=== PATIENT | female | born 1955 | race Two or more races ===

== ENCOUNTER 2017-04-15 19:35 | Emergency (ER) | payer OTHER ==
[~2017-04-15] VITALS: Ht 172.7 cm; Wt 79.4 kg
[2017-04-15] MEDS ORDERED: PHENYLEPHRINE HCL 0.5 % NASAL SPRAY 15ML ONE (19:45)
[2017-04-15] MEDS ORDERED: OXYMETAZOLINE HCL 0.05 % NASAL SPRAY 15ML ONE (19:55)
[2017-04-15] MEDS ORDERED: phytonadione 1 ML ONE (20:20)
[2017-04-15] MEDS ORDERED: COCAINE HCL 4% TOP SOL 4ML TOP ONE (20:22)
[2017-04-15 20:43] LABS: Basophils # (auto) 0.1 uL; Basophils % (auto) 0.5 % (0.0-2.0); Eosinophils # (auto) 0.3 uL; Eosinophils % (auto) 1.7 % (0.0-7.0); Hemoglobin 13.1 g/dL (12.2-16.2); Lymphocytes # (auto) 5.1 uL; Lymphocytes % (auto) 31.3 % (10.0-50.0); Mean Corpuscular Hgb Conc. 33.7 g/dL (32.0-36.0); Mean Corpuscular Volume 94.9 fL (80.0-100.0); Mean Platelet Volume 11.4 fL (6.9-10.8); Monocytes # (auto) 1.2 uL; Monocytes % (auto) 7.3 % (0.0-12.0); Neutrophils # (auto) 9.7 uL; Neutrophils % (auto) 59.2 % (37.0-80.0); Nucleated Red Blood Cells % 0.2 %; Platelet Count (auto) 196 10^3/uL (140-450); Red Cell Distribution Width 13.3 % (11.8-14.3); White Blood Cell 16.4 10^3/uL (4.4-10.8)
[2017-04-15] MEDS ORDERED: SODIUM CHLORIDE 0.9% 1,000 ML IV ONE (20:45)
[2017-04-15] MEDS ORDERED: LIDOCAINE 1% HCL (LOCAL ANESTH.) INJ 20ML MDV ONE (20:48)
[2017-04-15 20:57] LABS: INR 0.99 (0.9-1.15); Partial Thromboplastin Time 24.2 sec (22.64-33.71); Prothrombin Time 10.8 sec (9.37-12.3)
[2017-04-15] MEDS ORDERED: LIDOCAINE 1% HCL (LOCAL ANESTH.) INJ 20ML MDV IJ ONE (21:00)
[2017-04-15 21:13] LABS: Albumin 3.5 g/dL (3.4-5.0); BUN/Creatinine Ratio 14.8; Bilirubin, Total 0.6 mg/dL (0.2-1.0); Calcium 8.9 mg/dL (8.5-10.1); Potassium 3.5 mmol/L (3.5-5.1); Total Protein 6.6 g/dL (6.4-8.2)
[2017-04-15] MEDS ORDERED: PHYTONADIONE (VIT K)10 MG/ML 1ML VIAL SUBCUT ONE (21:15)
[2017-04-15] MEDS ORDERED: ONDANSETRON HCL 4 MG/2 ML VIAL IV ONE (23:15)
[2017-04-16] MEDS ORDERED: HYDROmorphone HCL 2 MG/ML VL IV ONE (00:15)
[2017-04-16] MEDS ORDERED: cefTRIAXone 1GM/50ML D5W 50 ML IV ONE (02:45)
[2017-04-16 03:30] VITALS: BP 135/76
== END 2017-04-16 04:25 | disposition home or self-care (01) ==
LOC: ER 19:41
DX: R04.0 Epistaxis (principal)
CPT/HCPCS: 30901; 36415; 70486; 76705; 80053; 83036; 83690; 85025; 85610; 85730; 86850; 86900; 86901; 96361; 96365; 96372; 96375; 99285; J0696; J2001; J2405; J3430; J7030; J7060

== ENCOUNTER 2017-11-29 03:07 | Emergency (ER) | payer OTHER ==
[~2017-11-29] VITALS: Ht 172.7 cm; Wt 77.1 kg
[2017-11-29] MEDS ORDERED: OXYMETAZOLINE HCL 0.05 % NASAL SPRAY 15ML ONE (03:15)
[2017-11-29] MEDS ORDERED: COCAINE HCL 4% TOP SOL 4ML TOP ONE (03:30)
[2017-11-29 03:38] LABS: Basophils # (auto) 0.1 uL; Basophils % (auto) 0.7 % (0.0-2.0); Eosinophils # (auto) 0.4 uL; Eosinophils % (auto) 3.5 % (0.0-7.0); Hematocrit 43.2 % (36.0-46.0); Hemoglobin 14.5 g/dL (12.2-16.2); Lymphocytes # (auto) 4.5 uL; Lymphocytes % (auto) 39.9 % (10.0-50.0); Mean Corpuscular Hemoglobin 31.8 pg (28.0-32.0); Mean Corpuscular Hgb Conc. 33.4 g/dL (32.0-36.0); Mean Corpuscular Volume 95.2 fL (80.0-100.0); Monocytes # (auto) 0.7 uL; Monocytes % (auto) 5.8 % (0.0-12.0); Neutrophils # (auto) 5.7 uL; Neutrophils % (auto) 50.1 % (37.0-80.0); Platelet Count (auto) 195 10^3/uL (140-450); Red Blood Cells 4.54 10^6/uL (4.0-5.20); Red Cell Distribution Width 13.6 % (11.8-14.3); White Blood Cell 11.3 10^3/uL (4.4-10.8)
[2017-11-29] MEDS ORDERED: HYDROcodone-ACET 7.5/325MG TAB PO ONE (03:45)
[2017-11-29 03:56] LABS: Albumin 3.5 g/dL (3.4-5.0); BUN/Creatinine Ratio 16.7; Calcium 8.7 mg/dL (8.5-10.1); Potassium 4.3 mmol/L (3.5-5.1)
[2017-11-29 03:58] LABS: Bilirubin, Total 0.6 mg/dL (0.2-1.0); Total Protein 7.1 g/dL (6.4-8.2)
[2017-11-29] MEDS ORDERED: SODIUM CHLORIDE 0.9% 1,000 ML IV ONE (04:00)
[2017-11-29] MEDS ORDERED: PHYTONADIONE (VIT K)10 MG/ML 1ML VIAL SUBCUT ONE (05:15)
[2017-11-29 05:30] VITALS: BP 170/94
== END 2017-11-29 05:46 | disposition home or self-care (01) ==
LOC: ER 03:09
DX: R04.0 Epistaxis (principal)
CPT/HCPCS: 30901; 36415; 80053; 85025; 99284; J3430; J7030

== ENCOUNTER 2017-12-03 07:00 | Emergency (ER) | payer OTHER ==
[~2017-12-03] VITALS: Ht 172.7 cm; Wt 79.8 kg
[2017-12-03 07:21] VITALS: BP 118/64
== END 2017-12-03 07:45 | disposition home or self-care (01) ==
LOC: ER 07:00
DX: R04.0 Epistaxis (principal); E78.5 Hyperlipidemia, unspecified

== ENCOUNTER 2018-05-23 12:27 | Inpatient (IN) | payer SELFPAY ==
[~2018-05-23] VITALS: Ht 172.7 cm; Wt 80.6 kg
[2018-05-23] MEDS ORDERED: SODIUM CHLORIDE 0.9% 1,000 ML IV ONE (13:17)
[2018-05-23] MEDS ORDERED: LEVOFLOXACIN 500MG 100 ML IV ONE (13:30)
[2018-05-23] MEDS ORDERED: methylPREDNISolone SOD SUCC 125 MG/2 ML VL IV ONE (13:30)
[2018-05-23 13:57] LABS: Hematocrit 40.3 % (36.0-46.0); Hemoglobin 13.3 g/dL (12.2-16.2); Mean Corpuscular Hemoglobin 30.4 pg (28.0-32.0); Mean Corpuscular Hgb Conc. 32.9 g/dL (32.0-36.0); Mean Corpuscular Volume 92.4 fL (80.0-100.0); Platelet Count (auto) 195 10^3/uL (140-450); Red Blood Cells 4.37 10^6/uL (4.0-5.20); Red Cell Distribution Width 14.5 % (11.8-14.3); White Blood Cell 15.9 10^3/uL (4.4-10.8)
[2018-05-23 14:18] LABS: Band Neutrophils % (manual) 0; Basophils % (manual) 0 (0.0-2.0); Blast Cells 0; Eosinophils % (manual) 0 (0-7); Metamyelocytes % 0; Myelocytes % 0; Promyelocytes % 0; Reactive Lymphocytes 0
[2018-05-23 14:32] LABS: Alkaline Phosphatase 266 U/L (45-117); Aspartate Aminotransferase 57 U/L (15-37); Bilirubin, Total 0.8 mg/dL (0.2-1.0); GFR African American 12 mL/min; GFR Non-African American 10 mL/min; Total Protein 6.8 g/dL (6.4-8.2)
[2018-05-23 14:42] LABS: Lactic Acid w/Reflex 3.1 mmol/L (0.4-2.0)
[2018-05-23] MEDS ORDERED: SODIUM CHLORIDE 0.9% 1,000 ML IV SCH ×2 (14:46→15:45)
[2018-05-23 14:59] LABS: Lymphocytes % (manual) 5 (10.0-50.0); Monocytes % (manual) 2 (0-12)
[2018-05-23] MEDS ORDERED: LACTULOSE 20Gm/30ML SOLN PO PRN (15:00)
[2018-05-23] MEDS ORDERED: PROMETHAZINE HCL 25 MG/ML 1ML IV PRN (15:00)
[2018-05-23] MEDS ORDERED: ALBUTEROL SULF 2.5 MG/0.5ML(0.5%) NEB SOLN NEB PRN (15:00)
[2018-05-23] MEDS ORDERED: VANCOMYCIN 1GM/250ML 250 ML IV ONE (15:00)
[2018-05-23] MEDS ORDERED: ACETAMINOPHEN 500 MG TAB PO PRN (15:00)
[2018-05-23] MEDS ORDERED: VANCOMYCIN PER PHARMACY 0 MG IV SCH (15:00)
[2018-05-23] MEDS ORDERED: TEMAZEPAM 15 MG CAP PO PRN (15:00)
[2018-05-23] MEDS ORDERED: PIPERACILLIN-TAZOB 3.375GM 100 ML IV ONE (15:00)
[2018-05-23] MEDS ORDERED: MORPHINE SULFATE 4 MG/ML SYR/VIAL IV PRN (15:00)
[2018-05-23] MEDS ORDERED: LORazepam 0.5 MG TAB PO PRN (15:00)
[2018-05-23] MEDS ORDERED: NITROGLYCERIN 0.4 MG SL TAB SL PRN (15:00)
[2018-05-23] MEDS ORDERED: KETOROLAC TROMETH 30 MG/ML 1ML VIAL IV PRN (15:00)
[2018-05-23] MEDS ORDERED: OSELTAMIVIR 75 MG CAP PO ONE (15:00)
[2018-05-23] MEDS ORDERED: PIPERACILLIN-TAZOB 2.25GM 50 ML IV SCH (15:17)
[2018-05-23] MEDS ORDERED: OSELTAMIVIR 30 MG CAP PO SCH (15:19)
[2018-05-23 15:31] LABS: Urine Bacteria NONE SEEN /hpf (None Seen); Urine Blood Negative /uL (Negative); Urine Hyaline Cast MOD /lpf (0 - 2); Urine Specific Gravity 1.009 (1.001-1.035); Urine WBC 77 /hpf (0 - 5); Urine WBC Clumps PRESENT /hpf (None Seen)
[2018-05-23 15:37] LABS: Chloride 100 mmol/L (98-107); Potassium 3.6 mmol/L (3.5-5.1); Sodium 132 mmol/L (136-145)
[2018-05-23 15:38] LABS: Anion Gap 17 (5-15); BUN/Creatinine Ratio 21.9; Carbon Dioxide 15 mmol/L (21-32); Glucose 104 mg/dL (74-106)
[2018-05-23 15:39] LABS: Alanine Aminotransferase 79 U/L (13-56); Calcium 8.4 mg/dL (8.5-10.1)
[2018-05-23 15:40] LABS: Albumin 1.9 g/dL (3.4-5.0)
[2018-05-23 15:42] LABS: Blood Urea Nitrogen 102 mg/dL (7-18)
[2018-05-23] MEDS ORDERED: CLINDAMYCIN 900MG IV 50 ML IV ONE (15:45)
[2018-05-23 17:20] VITALS: BP_SYST 118; BP_SYST 122; BP_DIAS 38; BP_DIAS 70
[2018-05-23 17:31] VITALS: BP 118/70
[2018-05-23] MEDS: SODIUM BICARBONATE 50ML VIAL 50 ML in SOD CHL 0.45% 1,000 ML IV SCH (17:47)
[2018-05-23] MEDS ORDERED: PIPERACILLIN-TAZOB 3.375GM 100 ML IV SCH (18:00)
[2018-05-23] MEDS: ALBUTEROL SULF 2.5 MG/0.5ML(0.5%) NEB SOLN NEB SCH (19:06)
[2018-05-23 19:14] LABS: Creatinine, Urine 54 mg/dL (30.0-125.0); Sodium Urine 43 mmol/L (40-220)
[2018-05-23] MEDS: traMADol HCL 50 MG TAB PO PRN (20:34)
[2018-05-23 22:00] VITALS: BP 104/60
[2018-05-23] MEDS ORDERED: OSELTAMIVIR 75 MG CAP PO SCH (22:00)
[2018-05-23] MEDS: CLINDAMYCIN 600MG IV 50 ML IV SCH (22:27)
[2018-05-23] MEDS: HEPARIN SODIUM (PORCINE) 5000 UNITS/ML 1ML VIAL SC SCH (22:31)
[2018-05-24 05:00] VITALS: BP 100/59
[2018-05-24 05:27] LABS: Albumin 1.8 g/dL (3.4-5.0); BUN/Creatinine Ratio 35.7; Calcium 8.7 mg/dL (8.5-10.1)
[2018-05-24 05:30] LABS: Bilirubin, Total 0.6 mg/dL (0.2-1.0); Total Protein 6.1 g/dL (6.4-8.2)
[2018-05-24] MEDS: ALBUTEROL SULF 2.5 MG/0.5ML(0.5%) NEB SOLN NEB SCH ×4 (06:09→19:12)
[2018-05-24] MEDS: CLINDAMYCIN 600MG IV 50 ML IV SCH ×3 (06:11→21:43)
[2018-05-24 08:00] VITALS: BP 113/61
[2018-05-24 09:00] VITALS: BP 113/61
[2018-05-24] MEDS: PANTOPRAZOLE 40 MG TAB PO SCH (09:41)
[2018-05-24] MEDS: HEPARIN SODIUM (PORCINE) 5000 UNITS/ML 1ML VIAL SC SCH ×2 (09:48→21:44)
[2018-05-24] MEDS: SODIUM BICARBONATE 50ML VIAL 50 ML in SOD CHL 0.45% 1,000 ML IV SCH ×2 (09:49→13:30)
[2018-05-24] MEDS ORDERED: AZITHROMYCIN 500MG/ 250ML 250 ML IV SCH (10:00)
[2018-05-24] MEDS ORDERED: ENOXAPARIN SOD 40 MG/0.4 ML SYRINGE SC SCH (10:00)
[2018-05-24 12:47] LABS: Protein, Urine 56.6 mg/dL (0.0-11.9)
[2018-05-24 13:00] VITALS: BP 106/65
[2018-05-24 13:00] LABS: Urine Bacteria FEW /hpf (None Seen); Urine Blood Negative /uL (Negative); Urine WBC 1 /hpf (0 - 5)
[2018-05-24 16:45] VITALS: BP 126/69
[2018-05-24] MEDS: traMADol HCL 50 MG TAB PO PRN (21:45)
[2018-05-24 22:00] VITALS: BP 137/72
[2018-05-25] MEDS: SODIUM BICARBONATE 50ML VIAL 50 ML in SOD CHL 0.45% 1,000 ML IV SCH (00:27)
[2018-05-25] MEDS: traMADol HCL 50 MG TAB PO PRN ×2 (03:51→22:16)
[2018-05-25 05:00] VITALS: BP 96/48
[2018-05-25] MEDS: CLINDAMYCIN 600MG IV 50 ML IV SCH (05:30)
[2018-05-25 05:51] LABS: Hematocrit 31.6 % (36.0-46.0); Hemoglobin 10.6 g/dL (12.2-16.2); Mean Corpuscular Hemoglobin 30.2 pg (28.0-32.0); Mean Corpuscular Hgb Conc. 33.6 g/dL (32.0-36.0); Platelet Count (auto) 193 10^3/uL (140-450); Red Blood Cells 3.51 10^6/uL (4.0-5.20); Red Cell Distribution Width 14.7 % (11.8-14.3); White Blood Cell 20.9 10^3/uL (4.4-10.8)
[2018-05-25 05:57] LABS: Calcium 9.4 mg/dL (8.5-10.1); Potassium 3.6 mmol/L (3.5-5.1)
[2018-05-25 06:02] LABS: Basophils % (manual) 0 (0.0-2.0); Blast Cells 0; Eosinophils % (manual) 0 (0-7); Metamyelocytes % 0; Myelocytes % 0; Promyelocytes % 0; Reactive Lymphocytes 0
[2018-05-25 06:03] LABS: BUN/Creatinine Ratio 32.3; Phosphorus 3.8 mg/dL (2.5-4.90); Uric Acid 11.8 mg/dL (2.6-6.0)
[2018-05-25] MEDS: ALBUTEROL SULF 2.5 MG/0.5ML(0.5%) NEB SOLN NEB SCH ×3 (06:15→18:00)
[2018-05-25 06:33] LABS: Band Neutrophils % (manual) 2; Lymphocytes % (manual) 9 (10.0-50.0); Monocytes % (manual) 1 (0-12)
[2018-05-25 08:49] VITALS: BP 103/56
[2018-05-25] MEDS ORDERED: cefTRIAXone 1GM/50ML D5W 50 ML IV ONE (09:45)
[2018-05-25] MEDS: AZITHROMYCIN 500MG/ 250ML 250 ML IV SCH (10:00)
[2018-05-25] MEDS: PANTOPRAZOLE 40 MG TAB PO SCH (10:00)
[2018-05-25] MEDS ORDERED: LEVOFLOXACIN 250MG 50 ML IV SCH (10:00)
[2018-05-25] MEDS ORDERED: DEXTROSE (50%) 50ML SYRG IV PRN (10:30)
[2018-05-25] MEDS: HEPARIN SODIUM (PORCINE) 5000 UNITS/ML 1ML VIAL SC SCH ×2 (11:14→22:16)
[2018-05-25] MEDS: ACCU-CHEK COMFORT CURVE STRIP VI SCH ×3 (11:30→23:31)
[2018-05-25] MEDS: InsuLIN REG 1unit/0.01ml Soln (100units/ml) SC SCH ×3 (11:30→22:00)
[2018-05-25 13:00] VITALS: BP 105/57
[2018-05-25] MEDS: SOD CHL 0.9%/ KCL 20MEQ 1,000 ML IV SCH (16:00)
[2018-05-25 16:37] VITALS: BP 125/50
[2018-05-25 22:00] VITALS: BP 113/52
[2018-05-26 04:53] VITALS: BP 110/50
[2018-05-26 05:24] LABS: Basophils # (auto) 0 uL; Basophils % (auto) 0.1 % (0.0-2.0); Eosinophils # (auto) 0.1 uL; Eosinophils % (auto) 0.5 % (0.0-7.0); Hematocrit 35.2 % (36.0-46.0); Hemoglobin 11.6 g/dL (12.2-16.2); Lymphocytes # (auto) 2.6 uL; Mean Corpuscular Hemoglobin 29.9 pg (28.0-32.0); Mean Corpuscular Hgb Conc. 33.1 g/dL (32.0-36.0); Mean Corpuscular Volume 90.3 fL (80.0-100.0); Monocytes # (auto) 0.7 uL; Monocytes % (auto) 4.2 % (0.0-12.0); Neutrophils % (auto) 79.2 % (37.0-80.0); Platelet Count (auto) 207 10^3/uL (140-450); Red Blood Cells 3.89 10^6/uL (4.0-5.20); Red Cell Distribution Width 14.3 % (11.8-14.3); White Blood Cell 16.4 10^3/uL (4.4-10.8)
[2018-05-26 05:42] LABS: Albumin 1.8 g/dL (3.4-5.0); Calcium 8.9 mg/dL (8.5-10.1)
[2018-05-26 05:47] LABS: BUN/Creatinine Ratio 53.9; Bilirubin, Total 0.9 mg/dL (0.2-1.0); Total Protein 5.5 g/dL (6.4-8.2)
[2018-05-26] MEDS: SOD CHL 0.9%/ KCL 20MEQ 1,000 ML IV SCH ×2 (05:59→20:04)
[2018-05-26] MEDS: InsuLIN REG 1unit/0.01ml Soln (100units/ml) SC SCH ×4 (06:52→21:23)
[2018-05-26] MEDS: ACCU-CHEK COMFORT CURVE STRIP VI SCH ×4 (06:54→21:23)
[2018-05-26] MEDS: ALBUTEROL SULF 2.5 MG/0.5ML(0.5%) NEB SOLN NEB SCH ×5 (07:18→23:55)
[2018-05-26 08:30] VITALS: BP 100/47
[2018-05-26] MEDS: cefTRIAXone 1GM/50ML D5W 50 ML IV SCH (09:20)
[2018-05-26] MEDS: HEPARIN SODIUM (PORCINE) 5000 UNITS/ML 1ML VIAL SC SCH ×2 (10:03→21:17)
[2018-05-26] MEDS: AZITHROMYCIN 500MG/ 250ML 250 ML IV SCH (10:08)
[2018-05-26] MEDS: PANTOPRAZOLE 40 MG TAB PO SCH (10:08)
[2018-05-26 13:00] VITALS: BP 111/64
[2018-05-26 16:45] VITALS: BP 117/69
[2018-05-26 18:26] VITALS: BP 117/69
[2018-05-26 22:00] VITALS: BP 117/64
[2018-05-27 05:00] VITALS: BP 124/67
[2018-05-27] MEDS: ALBUTEROL SULF 2.5 MG/0.5ML(0.5%) NEB SOLN NEB SCH ×3 (06:05→18:12)
[2018-05-27] MEDS: ACCU-CHEK COMFORT CURVE STRIP VI SCH ×4 (06:17→21:52)
[2018-05-27] MEDS: InsuLIN REG 1unit/0.01ml Soln (100units/ml) SC SCH ×4 (06:19→21:52)
[2018-05-27] MEDS: SOD CHL 0.9%/ KCL 20MEQ 1,000 ML IV SCH (08:00)
[2018-05-27 08:59] VITALS: BP 128/65
[2018-05-27] MEDS: traMADol HCL 50 MG TAB PO PRN ×2 (10:04→19:36)
[2018-05-27] MEDS: cefTRIAXone 1GM/50ML D5W 50 ML IV SCH (10:09)
[2018-05-27] MEDS: PANTOPRAZOLE 40 MG TAB PO SCH (10:09)
[2018-05-27] MEDS: HEPARIN SODIUM (PORCINE) 5000 UNITS/ML 1ML VIAL SC SCH ×2 (10:10→22:01)
[2018-05-27] MEDS: ONDANSETRON HCL 4 MG/2 ML VIAL IV PRN (11:36)
[2018-05-27] MEDS: AZITHROMYCIN 500MG/ 250ML 250 ML IV SCH (11:37)
[2018-05-27 12:35] VITALS: BP 121/66
[2018-05-27 17:00] VITALS: BP 111/56
[2018-05-27 22:00] VITALS: BP 108/61
[2018-05-28] MEDS: ALBUTEROL SULF 2.5 MG/0.5ML(0.5%) NEB SOLN NEB SCH ×4 (00:53→19:21)
[2018-05-28] MEDS: SOD CHL 0.9%/ KCL 20MEQ 1,000 ML IV SCH ×2 (03:55→10:40)
[2018-05-28 05:25] VITALS: BP 118/61
[2018-05-28 06:06] LABS: Hematocrit 30.1 % (36.0-46.0); Hemoglobin 9.9 g/dL (12.2-16.2); Mean Corpuscular Volume 91.1 fL (80.0-100.0); Platelet Count (auto) 173 10^3/uL (140-450); Red Blood Cells 3.31 10^6/uL (4.0-5.20); Red Cell Distribution Width 14.4 % (11.8-14.3); White Blood Cell 14.3 10^3/uL (4.4-10.8)
[2018-05-28 06:20] LABS: Basophils % (manual) 0 (0.0-2.0); Blast Cells 0; Monocytes % (manual) 0 (0-12); Promyelocytes % 0; Reactive Lymphocytes 0
[2018-05-28] MEDS: InsuLIN REG 1unit/0.01ml Soln (100units/ml) SC SCH ×4 (06:32→22:00)
[2018-05-28] MEDS: ACCU-CHEK COMFORT CURVE STRIP VI SCH ×4 (06:34→22:00)
[2018-05-28 06:58] LABS: Albumin 1.6 g/dL (3.4-5.0); Calcium 8.3 mg/dL (8.5-10.1)
[2018-05-28 07:02] LABS: BUN/Creatinine Ratio 23.1; Bilirubin, Total 0.4 mg/dL (0.2-1.0); Total Protein 5.1 g/dL (6.4-8.2)
[2018-05-28 07:09] LABS: Band Neutrophils % (manual) 1; Eosinophils % (manual) 2 (0-7); Lymphocytes % (manual) 12 (10.0-50.0); Metamyelocytes % 1; Myelocytes % 3
[2018-05-28 09:00] VITALS: BP 176/65
[2018-05-28] MEDS: cefTRIAXone 1GM/50ML D5W 50 ML IV SCH (09:29)
[2018-05-28] MEDS: ONDANSETRON HCL 4 MG/2 ML VIAL IV PRN (09:38)
[2018-05-28] MEDS ORDERED: AZITHROMYCIN 250 MG TAB PO SCH (10:00)
[2018-05-28] MEDS ORDERED: METOPROLOL TARTRATE 50 MG TAB PO ONE (10:15)
[2018-05-28] MEDS: PANTOPRAZOLE 40 MG TAB PO SCH (10:53)
[2018-05-28] MEDS: diphenhdrAMINE HCL 25 MG CAP PO PRN ×2 (10:53→18:15)
[2018-05-28] MEDS: HEPARIN SODIUM (PORCINE) 5000 UNITS/ML 1ML VIAL SC SCH ×2 (10:54→21:48)
[2018-05-28 13:00] VITALS: BP 116/65
[2018-05-28] MEDS: traMADol HCL 50 MG TAB PO PRN ×2 (14:03→22:01)
[2018-05-28 17:00] VITALS: BP 78/38
[2018-05-28 17:01] VITALS: BP 95/48
[2018-05-28 21:30] VITALS: BP 112/58
[2018-05-28] MEDS ORDERED: METOPROLOL TARTRATE 50 MG TAB PO SCH (22:00)
[2018-05-29 05:00] VITALS: BP 102/61
[2018-05-29] MEDS: InsuLIN REG 1unit/0.01ml Soln (100units/ml) SC SCH ×4 (06:11→21:34)
[2018-05-29] MEDS: ACCU-CHEK COMFORT CURVE STRIP VI SCH ×4 (06:11→21:34)
[2018-05-29] MEDS: SOD CHL 0.9%/ KCL 20MEQ 1,000 ML IV SCH ×2 (06:12)
[2018-05-29 06:13] LABS: Hematocrit 30.2 % (36.0-46.0); Hemoglobin 10.2 g/dL (12.2-16.2); Mean Corpuscular Hemoglobin 31.5 pg (28.0-32.0); Mean Corpuscular Hgb Conc. 33.9 g/dL (32.0-36.0); Mean Corpuscular Volume 92.9 fL (80.0-100.0); Platelet Count (auto) 205 10^3/uL (140-450); Red Blood Cells 3.25 10^6/uL (4.0-5.20); Red Cell Distribution Width 14.3 % (11.8-14.3); White Blood Cell 10.6 10^3/uL (4.4-10.8)
[2018-05-29] MEDS: ALBUTEROL SULF 2.5 MG/0.5ML(0.5%) NEB SOLN NEB SCH ×4 (06:23→19:11)
[2018-05-29] MEDS: diphenhdrAMINE HCL 25 MG CAP PO PRN ×3 (06:24→23:00)
[2018-05-29 06:33] LABS: Potassium 4.4 mmol/L (3.5-5.1)
[2018-05-29 06:42] LABS: Basophils % (manual) 0 (0.0-2.0); Blast Cells 0; Metamyelocytes % 0; Myelocytes % 0; Promyelocytes % 0; Reactive Lymphocytes 0
[2018-05-29 06:45] LABS: Albumin 1.7 g/dL (3.4-5.0); BUN/Creatinine Ratio 18.4; Bilirubin, Total 0.4 mg/dL (0.2-1.0); Calcium 8.5 mg/dL (8.5-10.1); Total Protein 5.3 g/dL (6.4-8.2)
[2018-05-29] MEDS: traMADol HCL 50 MG TAB PO PRN ×2 (08:00→22:59)
[2018-05-29 08:12] LABS: Band Neutrophils % (manual) 2; Eosinophils % (manual) 1 (0-7); Lymphocytes % (manual) 13 (10.0-50.0); Monocytes % (manual) 4 (0-12)
[2018-05-29 08:16] VITALS: BP 119/71
[2018-05-29] MEDS: cefTRIAXone 1GM/50ML D5W 50 ML IV SCH (09:25)
[2018-05-29] MEDS: PANTOPRAZOLE 40 MG TAB PO SCH (10:58)
[2018-05-29] MEDS ORDERED: LEVOFLOXACIN 250 MG TAB PO ONE (11:00)
[2018-05-29 11:57] VITALS: BP 117/65
[2018-05-29 17:20] VITALS: BP 118/66
[2018-05-29 20:16] VITALS: BP 118/66
[2018-05-29 22:00] VITALS: BP 104/51
[2018-05-30] MEDS: ALBUTEROL SULF 2.5 MG/0.5ML(0.5%) NEB SOLN NEB SCH ×4 (00:11→18:38)
[2018-05-30 05:00] VITALS: BP 114/67
[2018-05-30 06:24] LABS: Hemoglobin 10.4 g/dL (12.2-16.2); Mean Corpuscular Hemoglobin 31.8 pg (28.0-32.0); Mean Corpuscular Hgb Conc. 34.7 g/dL (32.0-36.0); Mean Corpuscular Volume 91.8 fL (80.0-100.0); Platelet Count (auto) 207 10^3/uL (140-450); Red Blood Cells 3.27 10^6/uL (4.0-5.20); Red Cell Distribution Width 14.2 % (11.8-14.3); White Blood Cell 6.8 10^3/uL (4.4-10.8)
[2018-05-30 06:27] LABS: Basophils % (manual) 0 (0.0-2.0); Blast Cells 0; Myelocytes % 0; Promyelocytes % 0; Reactive Lymphocytes 0
[2018-05-30 06:46] LABS: Albumin 1.8 g/dL (3.4-5.0); Calcium 8.5 mg/dL (8.5-10.1)
[2018-05-30 06:50] LABS: BUN/Creatinine Ratio 9.1; Bilirubin, Total 0.5 mg/dL (0.2-1.0); Total Protein 5.6 g/dL (6.4-8.2)
[2018-05-30] MEDS: InsuLIN REG 1unit/0.01ml Soln (100units/ml) SC SCH ×4 (07:00→21:19)
[2018-05-30] MEDS: ACCU-CHEK COMFORT CURVE STRIP VI SCH ×4 (07:03→21:18)
[2018-05-30] MEDS: diphenhdrAMINE HCL 25 MG CAP PO PRN ×2 (07:44→20:24)
[2018-05-30 08:00] VITALS: BP 107/57
[2018-05-30 08:22] VITALS: BP 107/51
[2018-05-30 08:25] LABS: Band Neutrophils % (manual) 3; Eosinophils % (manual) 2 (0-7); Lymphocytes % (manual) 32 (10.0-50.0); Metamyelocytes % 2; Monocytes % (manual) 7 (0-12)
[2018-05-30] MEDS: PANTOPRAZOLE 40 MG TAB PO SCH (10:24)
[2018-05-30] MEDS: LEVOFLOXACIN 250 MG TAB PO SCH (10:25)
[2018-05-30 12:50] VITALS: BP 121/61
[2018-05-30] MEDS ORDERED: FLUCONAZOLE 100 MG TAB PO ONE (16:15)
[2018-05-30 17:03] VITALS: BP 111/63
[2018-05-30] MEDS: metFORMIN HYDROCHLORIDE 500 MG TAB PO SCH (17:31)
[2018-05-30] MEDS: traMADol HCL 50 MG TAB PO PRN (20:25)
[2018-05-30 21:41] VITALS: BP 115/63
[2018-05-31] MEDS: ALBUTEROL SULF 2.5 MG/0.5ML(0.5%) NEB SOLN NEB SCH ×3 (00:39→11:42)
[2018-05-31 04:55] VITALS: BP 115/54
[2018-05-31] MEDS: InsuLIN REG 1unit/0.01ml Soln (100units/ml) SC SCH ×2 (06:19→11:30)
[2018-05-31] MEDS: ACCU-CHEK COMFORT CURVE STRIP VI SCH ×2 (06:20→11:44)
[2018-05-31] MEDS: metFORMIN HYDROCHLORIDE 500 MG TAB PO SCH (07:33)
[2018-05-31 08:00] VITALS: BP 103/54
[2018-05-31] MEDS ORDERED: FLUCONAZOLE 100 MG TAB PO SCH (10:00)
[2018-05-31] MEDS: LEVOFLOXACIN 250 MG TAB PO SCH (10:04)
[2018-05-31] MEDS: diphenhdrAMINE HCL 25 MG CAP PO PRN ×2 (10:04→11:42)
[2018-05-31] MEDS: PANTOPRAZOLE 40 MG TAB PO SCH (10:05)
[2018-05-31] MEDS ORDERED: LEVO250T19 PO (10:43)
[2018-05-31] MEDS ORDERED: PANT40T PO (10:43)
[2018-05-31] MEDS ORDERED: METF500T PO (10:43)
[2018-05-31] MEDS ORDERED: ALBUAER3 IN (10:43)
[2018-05-31] MEDS ORDERED: FLUC100T34 PO (10:43)
[2018-05-31 11:33] VITALS: BP 103/54
== END 2018-05-31 14:33 | disposition home or self-care (01) | DRG 871 ==
LOC: EDBD 12:27 → ER 12:27 → EDUNIT# 12:27 → TELE 14:43 → TELE-EAST 17:21 → EAST 05-25 10:17
PROVIDERS: ADMIT Internal Medicine; ATTEND Internal Medicine
DX: A41.9 Sepsis, unspecified organism (principal); E43 Unspecified severe protein-calorie malnutrition; J13 Pneumonia due to Streptococcus pneumoniae; J96.01 Acute respiratory failure with hypoxia; N17.0 Acute kidney failure with tubular necrosis; E11.21 Type 2 diabetes mellitus with diabetic nephropathy; E78.5 Hyperlipidemia, unspecified; G62.9 Polyneuropathy, unspecified; I12.9 Hypertensive chronic kidney disease with stage 1 through stage 4 chronic kidney disease, or unspecified chronic kidney disease; N18.2 Chronic kidney disease, stage 2 (mild); Z87.891 Personal history of nicotine dependence; Z90.49 Acquired absence of other specified parts of digestive tract; Z83.3 Family history of diabetes mellitus; Z82.5 Family history of asthma and other chronic lower respiratory diseases; Z79.899 Other long term (current) drug therapy; Z68.27 Body mass index [BMI] 27.0-27.9, adult
CPT/HCPCS: 36415; 36600; 71045; 71046; 71250; 76775; 78582; 80048; 80053; 80061; 81001; 82550; 82570; 82805; 82962; 83036; 83520; 83605; 83615; 83735; 83880; 84100; 84156; 84300; 84484; 84550; 85007; 85025; 85027; 85379; 86256; 87040; 87070; 87077; 87086; 87186; 87205; 87804; 93005; 93306; 93970; 94640; 96361; 96365; 96367; 96375; 99291; G0378; G9035; J0696; J1815; J1956; J2405; J3490

== ENCOUNTER 2018-06-11 12:54 | Emergency (ER) | payer OTHER ==
[~2018-06-11] VITALS: Ht 172.7 cm; Wt 77.1 kg
[~2018-06-11 12:54] MED LIST: ALBUAER3 IN; FLUC100T34 PO; LEVO250T19 PO; METF500T PO; PANT40T PO
[2018-06-11 13:22] VITALS: BP 110/56
[2018-06-11 13:55] LABS: Basophils # (auto) 0.1 uL; Basophils % (auto) 1.4 % (0.0-2.0); Eosinophils # (auto) 0.2 uL; Eosinophils % (auto) 4.4 % (0.0-7.0); Hematocrit 35.9 % (36.0-46.0); Hemoglobin 12.1 g/dL (12.2-16.2); Lymphocytes # (auto) 1.9 uL; Lymphocytes % (auto) 34.6 % (10.0-50.0); Mean Corpuscular Hemoglobin 30.7 pg (28.0-32.0); Mean Corpuscular Hgb Conc. 33.7 g/dL (32.0-36.0); Mean Corpuscular Volume 90.8 fL (80.0-100.0); Monocytes # (auto) 0.5 uL; Monocytes % (auto) 9.3 % (0.0-12.0); Neutrophils # (auto) 2.7 uL; Neutrophils % (auto) 50.3 % (37.0-80.0); Platelet Count (auto) 261 10^3/uL (140-450); Red Blood Cells 3.95 10^6/uL (4.0-5.20); Red Cell Distribution Width 14.1 % (11.8-14.3); White Blood Cell 5.4 10^3/uL (4.4-10.8)
[2018-06-11 14:10] LABS: Albumin 2.9 g/dL (3.4-5.0); Calcium 9.4 mg/dL (8.5-10.1); Potassium 3.9 mmol/L (3.5-5.1)
[2018-06-11 14:14] LABS: BUN/Creatinine Ratio 13.6; Bilirubin, Total 0.3 mg/dL (0.2-1.0); Total Protein 7.7 g/dL (6.4-8.2)
[2018-06-11] MEDS ORDERED: cefTRIAXone SOD 1,000 MG VL IM ONE (15:00)
== END 2018-06-11 16:15 | disposition home or self-care (01) ==
LOC: ER 12:57
DX: J18.9 Pneumonia, unspecified organism (principal); D64.9 Anemia, unspecified; E78.5 Hyperlipidemia, unspecified; Z90.49 Acquired absence of other specified parts of digestive tract; Z90.89 Acquired absence of other organs
CPT/HCPCS: 36415; 71046; 80053; 85025; 96372; 99284; J0696